=== PATIENT | female | born 1985 | race Two or more races ===

== ENCOUNTER 2024-07-08 11:15 | Inpatient (IN) | payer OTHER ==
[~2024-07-08] VITALS: Ht 170.2 cm; Wt 89.4 kg
[2024-07-08 13:16] VITALS: BP 111/76
[2024-07-08 13:20] VITALS: BP 124/82
[2024-07-08 14:05] LABS: RH POSITIVE
[2024-07-14] MEDS ORDERED: POVIDONE-IODINE 118 ML BOTT TOP ONE (12:31)
[2024-07-14] MEDS ORDERED: CLINDAMYCIN PHOSPHATE 150 MG/ML (600mg) IV ONE (13:30)
[2024-07-14] MEDS ORDERED: SUGAMMADEX SODIUM 200 MG/2 ML VIAL IV ONE (14:28)
[2024-07-14] MEDS ORDERED: SURGIFLO APPLICATOR 1 EACH APPL TOP ONE (14:43)
[2024-07-14] MEDS ORDERED: HEMOSTATIC MATRIX 1 KIT KIT TOP ONE (14:43)
[2024-07-14] MEDS ORDERED: RINGERS SOLUTION,LACTATED 1,000 ML IV SCH (16:15)
[2024-07-14] MEDS ORDERED: ONDANSETRON HCL 2 MG/ML VIAL IV PRN (16:15)
[2024-07-14] MEDS ORDERED: MORPHINE SULFATE 4 MG/ML VIAL IV PRN (16:15)
[2024-07-14] MEDS ORDERED: MORPHINE SULFATE 4 MG/ML VIAL IV ONE ×2 (16:30→17:00)
[2024-07-14] MEDS ORDERED: MORPHINE SULFATE 4 MG,MORPHINE SULFATE 2 MG IV PRN (16:45)
[2024-07-14] MEDS ORDERED: CLINDAMYCIN PHOSPHATE 150 MG/ML (600mg) IV SCH (18:00)
[2024-07-14 20:46] VITALS: BP 111/76
[2024-07-14 21:00] LABS: HEMATOCRIT 34.6 % (36.0-45.00); HEMOGLOBIN 11.3 g/dL (12.0-15.00); MEAN CELL VOLUME 83.4 fL (80.00-100.00); MEAN CORPUSCULAR HEMOGLOBIN 27.3 pg (27.00-32.0); MEAN CORPUSCULAR HGB CONC 32.8 g/dl (32.0-36.0); PLATELET COUNT 309 K/uL (150-450); RED BLOOD COUNT 4.15 M/uL (4.00-6.00); RED CELL DISTRIBUTION WIDTH 19.9 % (11.5-14.5)
[2024-07-15 01:01] VITALS: BP 103/66
[2024-07-15] MEDS ORDERED: GABAPENTIN 300 MG CAPSULE PO ONE (06:45)
[2024-07-15] MEDS ORDERED: ACETAMINOPHEN 500 MG GEL..CAP PO ONE (06:45)
[2024-07-15 06:52] LABS: HEMATOCRIT 28.8 % (36.0-45.00); HEMOGLOBIN 9.8 g/dL (12.0-15.00); MEAN CELL VOLUME 81.8 fL (80.00-100.00); MEAN CORPUSCULAR HEMOGLOBIN 27.8 pg (27.00-32.0); MEAN CORPUSCULAR HGB CONC 33.9 g/dl (32.0-36.0); PLATELET COUNT 281 K/uL (150-450); RED BLOOD COUNT 3.52 M/uL (4.00-6.00)
[2024-07-15] MEDS ORDERED: SIMETHICONE 125 MG CAPSULE PO ONE (07:00)
[2024-07-15] MEDS ORDERED: GABAPENTIN 300 MG CAPSULE PO PRN (07:15)
[2024-07-15] MEDS ORDERED: ACETAMINOPHEN 500 MG GEL..CAP PO PRN (07:15)
[2024-07-15 08:00] VITALS: BP 108/74
[2024-07-15] MEDS ORDERED: HYOSCYAMINE SULFATE 0.125 MG TAB.SUBL SL SCH (08:00)
[2024-07-15 10:24] LABS: HEMATOCRIT 33.1 % (36.0-45.00); HEMOGLOBIN 11.2 g/dL (12.0-15.00); MEAN CELL VOLUME 81.8 fL (80.00-100.00); MEAN CORPUSCULAR HEMOGLOBIN 27.6 pg (27.00-32.0); MEAN CORPUSCULAR HGB CONC 33.8 g/dl (32.0-36.0); PLATELET COUNT 312 K/uL (150-450); RED BLOOD COUNT 4.04 M/uL (4.00-6.00)
[2024-07-15 16:20] VITALS: BP 114/77
[2024-07-16 00:43] VITALS: BP 96/64
[2024-07-16] MEDS ORDERED: TYLENOL ARTHRI650 MG PO (06:31)
[2024-07-16] MEDS ORDERED: LEVSIN/SL0.125 MG SL (06:31)
[2024-07-16] MEDS ORDERED: TRAMADOL HCL50 MG PO (06:31)
[2024-07-16] MEDS ORDERED: GABAPENTIN300 MG PO (06:31)
[2024-07-16 08:00] VITALS: BP 110/76
== END 2024-07-16 09:10 | disposition home or self-care (01) | DRG 742 ==
LOC: SURG 07-14 07:00 → O/R 07-14 07:08 → OB/GYN 07-14 07:08 → SURG 07-14 11:15 → OB/GYN 07-14 17:17
PROVIDERS: Surgery; ADMIT Obstetrics & Gynecology Gynecology; ATTEND Obstetrics & Gynecology Gynecology
PROC: 0DNW4ZZ Release Peritoneum, Percutaneous Endoscopic Approach (ICD-10-PCS; 2024-07-14)
PROC: 0DNN4ZZ Release Sigmoid Colon, Percutaneous Endoscopic Approach (ICD-10-PCS; 2024-07-14)
PROC: 0DNE4ZZ Release Large Intestine, Percutaneous Endoscopic Approach (ICD-10-PCS; 2024-07-14)
PROC: 0DQE4ZZ Repair Large Intestine, Percutaneous Endoscopic Approach (ICD-10-PCS; 2024-07-14)
PROC: 0DJD8ZZ Inspection of Lower Intestinal Tract, Via Natural or Artificial Opening Endoscopic (ICD-10-PCS; 2024-07-14)
PROC: 0UT94ZZ Resection of Uterus, Percutaneous Endoscopic Approach (ICD-10-PCS; principal; 2024-07-14 07:00)
PROC: 0UT74ZZ Resection of Bilateral Fallopian Tubes, Percutaneous Endoscopic Approach (ICD-10-PCS; 2024-07-14 07:00)
DX: N80.03 Adenomyosis of the uterus (principal); K91.71 Accidental puncture and laceration of a digestive system organ or structure during a digestive system procedure; K57.30 Diverticulosis of large intestine without perforation or abscess without bleeding; K66.0 Peritoneal adhesions (postprocedural) (postinfection); N92.1 Excessive and frequent menstruation with irregular cycle

== ENCOUNTER 2024-07-18 20:26 | Inpatient (IN) | payer OTHER ==
[~2024-07-18] VITALS: Ht 170.2 cm; Wt 88.5 kg
[~2024-07-18 20:26] MED LIST: GABAPENTIN300 MG PO; LEVSIN/SL0.125 MG SL; TRAMADOL HCL50 MG PO; TYLENOL ARTHRI650 MG PO
[2024-07-18 21:35] VITALS: O2SAT 98
[2024-07-18] MEDS ORDERED: CLINDAMYCIN PHOSPHATE 600 MG in 0.9 % SODIUM CHLORIDE 50 ML IV SCH (22:07)
[2024-07-18] MEDS ORDERED: GENTAMICIN SULFATE 40 MG/ML VIAL IV SCH (22:08)
[2024-07-18] MEDS ORDERED: FAMOTIDINE/PF 20 MG in 0.9 % SODIUM CHLORIDE 8 ML IV PUSH STA (22:15)
[2024-07-18] MEDS ORDERED: RINGERS SOLUTION,LACTATED 1,000 ML IV SCH (22:15)
[2024-07-18] MEDS ORDERED: MORPHINE SULFATE 4 MG/ML VIAL IV ONE (22:15)
[2024-07-18] MEDS ORDERED: GENTAMICIN SULFATE 40 MG/ML VIAL ONE (22:29)
[2024-07-18] MEDS ORDERED: CLINDAMYCIN PHOSPHATE 150 MG/ML (300mg) ONE (22:30)
[2024-07-18 22:43] LABS: HEMATOCRIT 27.9 % (36.0-45.00); HEMOGLOBIN 9.5 g/dL (12.0-15.00); MEAN CORPUSCULAR HEMOGLOBIN 27.9 pg (27.00-32.0); PLATELET COUNT 450 K/uL (150-450); RED CELL DISTRIBUTION WIDTH 19.4 % (11.5-14.5)
[2024-07-18] MEDS ORDERED: MEPERIDINE HCL 25 MG/ML AMPUL IV PRN (22:45)
[2024-07-18] MEDS ORDERED: MORPHINE SULFATE 4 MG/ML CARTRIDGE IV SCH (22:52)
[2024-07-18 23:05] LABS: PARTIAL THROMBOPLASTIN TIME 29.9 SECONDS (22.0-34.0); PROTHROMBIN TIME 10.9 SECONDS (9.0-11.5)
[2024-07-18 23:06] LABS: ALBUMIN 2.7 gm/dL (3.4-5.0); BILIRUBIN TOTAL 0.58 mg/dL (0.3-1.2); CALCIUM 8.8 mg/dL (8.5-10.1); CREATININE SERUM 0.68 mg/dL (0.55-1.02); GFR 95.83; POTASSIUM 3.05 mEq/L (3.5-5.1); TOTAL PROTEIN 7.7 gm/dL (6.4-8.2)
[2024-07-18 23:14] LABS: URINE APPEARANCE Cloudy; URINE BILIRRUBIN Negative (NEGATIVE); URINE BLOOD Large; URINE COLOR Yellow; URINE GLUCOSE Negative (NEGATIVE); URINE KETONE 15 (NEGATIVE); URINE LEUKOCYTE Moderate; URINE NITRATE Negative; URINE PROTEIN 30 (NEGATIVE); URINE UROBILINOGEN 0.2 E.U./dl
[2024-07-18 23:18] LABS: URINE BACTERIA 2521.3 uL (0.0-1933); URINE EPITHELIAL CELLS 91.4 uL (0.0-38.8); URINE RBC 62.3 uL (0.0-20.8); URINE WBC 245.3 uL (0.0-23.2)
[2024-07-19 02:22] VITALS: BP 104/71
[2024-07-19 08:06] VITALS: BP 117/78
[2024-07-19] MEDS ORDERED: SOD FERRIC GLUC COMPLX/SUCROSE 62.5 MG/5 ML AMPUL IV SCH (09:00)
[2024-07-19 10:42] LABS: HEMATOCRIT 25.4 % (36.0-45.00); MEAN CELL VOLUME 82.4 fL (80.00-100.00); MEAN CORPUSCULAR HGB CONC 33.7 g/dl (32.0-36.0); PLATELET COUNT 413 K/uL (150-450); RED BLOOD COUNT 3.08 M/uL (4.00-6.00); RED CELL DISTRIBUTION WIDTH 19.6 % (11.5-14.5)
[2024-07-19 10:43] LABS: MEAN CORPUSCULAR HEMOGLOBIN 27.9 pg (27.00-32.0)
[2024-07-19 10:45] LABS: HEMOGLOBIN 8.6 g/dL (12.0-15.00)
[2024-07-19] MEDS ORDERED: ACETAMINOPHEN 500 MG GEL..CAP PO ONE (11:15)
[2024-07-19] MEDS ORDERED: levoFLOXacin IN DEXTROSE 5 % 150 ML IV SCH (11:55)
[2024-07-19] MEDS ORDERED: METRONIDAZOLE/SODIUM CHLORIDE 100 ML IV SCH (13:00)
[2024-07-19] MEDS ORDERED: levoFLOXacin IN DEXTROSE 5 % 5 MG/ML PIGGYBAG IV SCH (17:00)
[2024-07-19 17:32] VITALS: BP 130/85
[2024-07-20] VITALS: BP 104/63
[2024-07-20 08:00] VITALS: BP 119/83
[2024-07-20] MEDS ORDERED: TRAMADOL HCL 50 MG TABLET PO SCH (12:00)
[2024-07-20 16:34] VITALS: BP 127/86
[2024-07-20] MEDS ORDERED: POTASSIUM CHLORIDE IN WATER 100 ML IV STA (20:33)
[2024-07-20] MEDS ORDERED: ALPRAzolam 1 MG TABLET PO SCH (21:00)
[2024-07-21 00:33] VITALS: BP 119/79
[2024-07-21 07:00] VITALS: BP 120/81
[2024-07-21 08:52] LABS: HEMATOCRIT 29.2 % (36.0-45.00); MEAN CELL VOLUME 81.9 fL (80.00-100.00); PLATELET COUNT 574 K/uL (150-450); RED BLOOD COUNT 3.57 M/uL (4.00-6.00); RED CELL DISTRIBUTION WIDTH 19.9 % (11.5-14.5)
[2024-07-21 08:56] LABS: HEMOGLOBIN 9.9 g/dL (12.0-15.00); MEAN CORPUSCULAR HEMOGLOBIN 27.7 pg (27.00-32.0)
[2024-07-21 16:28] VITALS: BP 123/89
[2024-07-21] MEDS ORDERED: FAMOtidine 20 MG TABLET PO SCH (21:35)
[2024-07-21 23:31] LABS: ALBUMIN 2.2 gm/dL (3.4-5.0); BILIRUBIN TOTAL 0.28 mg/dL (0.3-1.2); CALCIUM 8.5 mg/dL (8.5-10.1); CREATININE SERUM 0.48 mg/dL (0.55-1.02); GFR 143.24; GLOBULINA 3.8 G/DL (2.4-3.5); POTASSIUM 3.88 mEq/L (3.5-5.1)
[2024-07-22] VITALS: BP 109/73
[2024-07-22 06:32] LABS: HEMATOCRIT 25.9 % (36.0-45.00); MEAN CORPUSCULAR HEMOGLOBIN 27.5 pg (27.00-32.0); PLATELET COUNT 548 K/uL (150-450); RED CELL DISTRIBUTION WIDTH 19.4 % (11.5-14.5)
[2024-07-22 06:40] LABS: HEMOGLOBIN 8.8 g/dL (12.0-15.00)
[2024-07-22 08:09] VITALS: BP 125/89
[2024-07-22] MEDS ORDERED: LACTOBACILLUS ACIDOPHILUS 1 CAP CAP PO SCH (09:00)
[2024-07-22] MEDS ORDERED: ENOXAPARIN SODIUM 40 MG/0.4 ML SYRINGE SUBCUTANEO SCH (09:00)
[2024-07-22] MEDS ORDERED: levoFLOXacin 750 MG TABLET PO SCH (17:00)
[2024-07-22 17:06] VITALS: BP 110/73
[2024-07-23] VITALS: BP 112/77
[2024-07-23] MEDS ORDERED: LEVOFLOXACIN750 MG PO (06:27)
[2024-07-23] MEDS ORDERED: METRONIDAZOLE500 MG PO (06:29)
[2024-07-23 06:31] LABS: HEMATOCRIT 25.6 % (36.0-45.00); MEAN CELL VOLUME 82.3 fL (80.00-100.00); MEAN CORPUSCULAR HGB CONC 33.8 g/dl (32.0-36.0); RED BLOOD COUNT 3.11 M/uL (4.00-6.00); RED CELL DISTRIBUTION WIDTH 19.6 % (11.5-14.5)
[2024-07-23] MEDS ORDERED: METRONIDAZOLE250 MG PO (06:31)
[2024-07-23 06:52] LABS: HEMOGLOBIN 8.6 g/dL (12.0-15.00); MEAN CORPUSCULAR HEMOGLOBIN 27.6 pg (27.00-32.0); PLATELET COUNT 660 K/uL (150-450)
[2024-07-23 08:52] VITALS: BP 116/81
== END 2024-07-23 09:55 | disposition home or self-care (01) | DRG 391 ==
LOC: ER 20:27 → OB/GYN 22:40
PROVIDERS: General Practice; Internal Medicine; ADMIT Obstetrics & Gynecology Gynecology; ATTEND Obstetrics & Gynecology Gynecology
PROC: BW21ZZZ Computerized Tomography (CT Scan) of Abdomen and Pelvis (ICD-10-PCS; principal; 2024-07-18)
PROC: BW21YZZ Computerized Tomography (CT Scan) of Abdomen and Pelvis using Other Contrast (ICD-10-PCS; 2024-07-18)
DX: K57.30 Diverticulosis of large intestine without perforation or abscess without bleeding (principal); A41.4 Sepsis due to anaerobes; R50.9 Fever, unspecified; D64.9 Anemia, unspecified; K66.0 Peritoneal adhesions (postprocedural) (postinfection); N92.1 Excessive and frequent menstruation with irregular cycle